=== PATIENT | female | born 2000 | race Caucasian/White ===

== ENCOUNTER 2020-03-03 13:32 | Outpatient (CLI) | payer OTHER, SELFPAY ==
[2020-03-03 22:50] LABS: SARS-CoV-2 RNA PCR Negative
== END 2020-03-03 13:33 | disposition home or self-care (01) ==
LOC: CHSLAB 13:39
DX: Z11.59 Encounter for screening for other viral diseases (principal)
CPT/HCPCS: 87635; C9803; U0003

== ENCOUNTER 2021-12-17 17:38 | Outpatient (CLI) | payer OTHER, SELFPAY ==
[2021-12-17 18:26] LABS: Thyroid Stimulating Hormone 1.62 uIU/mL (0.36-3.74)
== END 2021-12-17 17:39 | disposition home or self-care (01) ==
LOC: CHSLAB 17:40
PROVIDERS: PCP Family Medicine; Visit Provider Physician Assistant
DX: L65.9 Nonscarring hair loss, unspecified (principal)
CPT/HCPCS: 36415; 84439; 84443

== ENCOUNTER 2022-01-11 09:08 | Outpatient (CLI) | payer OTHER, SELFPAY ==
[2022-01-11 10:47] LABS: SARS-CoV-2 RNA PCR Positive (Negative)
== END 2022-01-11 09:09 | disposition home or self-care (01) ==
LOC: CHSLAB 09:13
PROVIDERS: PCP Nurse Practitioner; Visit Provider Nurse Practitioner
DX: U07.1 COVID-19 (principal); R09.89 Other specified symptoms and signs involving the circulatory and respiratory systems
CPT/HCPCS: C9803; U0003; U0005

== ENCOUNTER 2022-05-28 06:21 | Emergency (ER) | payer OTHER, SELFPAY ==
[2022-05-28 06:24] VITALS: BP 117/65; PULSE 72; RESP 16; TEMP 36.7; O2SAT 100
--- NOTE | 2022-05-28 06:37 | ED.EYEPROB ---
HPI - Eye Problem General Chief complaint: Eye Problems Stated complaint: Eye Irritation Source: patient Mode of arrival: ambulatory Limitations: no limitations History of Present Illness HPI Narrative: This is a 22-year-old female with some red had injected left eye with yellow discharge started earlier this morning patient does have cats at home there is some mild itching redness with no fever chills. No blurry vision. chief complaint: eye redness Onset (ago): hour(s) Onset description: gradual Duration: constant Location: left eye Eye Symptoms: redness and discharge Place: home Mechanism: none Severity: mild Related Data Home Medications Medication Instructions Recorded Confirmed fluoxetine 20 mg capsule 20 mg PO DIRECTED 05/28/22 05/28/22 Allergies Allergy/AdvReac Type Severity Reaction Status Date / Time midazolam Allergy Unknown Unknown Verified 05/28/22 06:30 Review of Systems Review of Systems: All systems reviewed & are unremarkable except as noted in HPI and below PMFSH Past Medical History Medical History Patient denies medical problems Exam Const: General: healthy appearing Nutritional Appearance: well nourished Orientation/consciousness: patient oriented x3 Limitations: no limitations HENMT: Head: normal to inspection Eyes: Conjunctivae: conjunctival abnormality ( red injected with a yellow discharge) left Pupils: Equal, round and reactive pupils present EOM: EOMs intact bilaterally Direct Ophthalmoscopy: no photophobia Neck: Neck: normal visual inspection Chest: Chest palpation & inspection: normal inspection of the chest Resp: Effort & Inspection: normal respiratory effort Cardio: Rate: regular rate Rhythm: regular rhythm GI: Auscultation: normal bowel sounds Urinary Catheter: Urinary Catheter: patent and draining Back/Spine/Pelvis: Back: no CVA tenderness Skin: General skin exam: normal color Rashes: no rashes Wounds: no wounds Neuro: General: patient oriented x3 and moves all extremities Extrem: General: normal to inspection Psych: Mental Status: mental status grossly normal Affect: normal affect Course Course Emergency Course: patient received antibiotic eye drop instilled to the left eye Critical Care Time Critical Care Time Critical Care Time: No Discharge Plan Discharge Clinical Impression: Bacterial conjunctivitis Patient Disposition: Home, Self-Care Condition: Stable Instructions: Antibiotic Form, Conjunctivitis (ED) Additional Instructions: take medicine as prescribed and follow-up with primary care physician if symptoms persist or worsen. Prescriptions: New neomycin-polymyxin B-dexameth [Maxitrol] 3.5mg/mL-10,000 unit/mL-0.1 % drops,suspension 1 drp LEFT EYE Q6H 7 Days Qty: 5 0RF No Action fluoxetine 20 mg Capsule 20 mg PO DIRECTED Follow-up/Referrals: Monique,Olga Lidia Molina, LELA [Primary Care Provider] - Time of Disposition: 06:43
[2022-05-28] MEDS: NEOMYCIN/POLYMYXIN/DEXAMETH OP SUSP 5 ML BTL 1 DROP LEFT EYE (06:45)
== END 2022-05-28 06:57 | disposition home or self-care (01) ==
PROVIDERS: Emergency Provider Emergency Medicine; PCP Nurse Practitioner
DX: H10.9 Unspecified conjunctivitis (principal)
CPT/HCPCS: 99283; A9270

== ENCOUNTER 2023-07-29 14:33 | Emergency (ER) | payer OTHER, MEDICAID, SELFPAY ==
--- NOTE | 2023-07-29 14:36 | ED.UPPEXIN ---
HPI - Extremity Injury (Upper) General Chief Complaint: Upper Respiratory Infection Stated Complaint: sore throat Time Seen by Provider: 07/29/23 14:34 Source: patient Mode of arrival: ambulatory Limitations: no limitations History of Present Illness HPI narrative: patient is a 23-year-old female with sore throat left greater than right side of the throat. She has no other complaints at this time. Pain is sharp and 4/10. It does not radiate. It started 4 days ago. It has been constant. It is getting worse. Associated symptoms: denies other symptoms Related Data Allergies Allergy/AdvReac Type Severity Reaction Status Date / Time midazolam Allergy Unknown Unknown Verified 07/29/23 14:48 Review of Systems Review of Systems: All systems reviewed & are unremarkable except as noted in HPI and below Constitutional: Constitutional: Reports no additional constitutional complaints Eyes: Eyes: Reports no additional eye complaints ENT: Reports system reviewed and no additional complaints, except as documented Cardiovascular: Cardiovascular: Reports no additional cardiovascular complaints Respiratory: Respiratory: Reports no additional respiratory complaints Gastrointestinal: Gastrointestinal: Reports no additional gastrointestinal complaints Genitourinary: Genitourinary: Reports no additional female genitourinary complaints Musculoskeletal: Musculoskeletal: Reports no additional musculoskeletal complaints Integumentary/Breasts: Skin/Breast: Reports system reviewed and no additional complaints, except as docu Neurologic: Reports system reviewed and no additional complaints, except as documented Psychiatric: Psychiatric: Reports no additional psychiatric complaints Endocrine: Endocrine: Reports no additional endocrine complaints Hematologic/Lymphatic: Hematologic/Lymphatic: Reports no additional hematologic/lymphatic complaints Allergic/Immunologic: Allergic/Immunologic: Reports no additional allergic/immunologic complaints PMFSH Past Medical History Medical History Patient denies medical problems Exam Const: General: healthy appearing Nutritional Appearance: well nourished Orientation/consciousness: patient oriented x3 HENMT: Head: normal to inspection Ears: external ears normal Face/Nose/Sinus: Normal external nose present Throat: posterior oropharynx abnormal Other: white pus pocket on the left posterior tonsil in the oropharynx and her pain is on the left side greater than the right Eyes: Conjunctivae: conjunctivae normal Pupils: Equal, round and reactive pupils present EOM: EOMs intact bilaterally Neck: Neck: normal visual inspection Chest: Chest palpation & inspection: normal inspection of the chest Resp: Effort & Inspection: normal respiratory effort and not labored Auscultation: clear to auscultation bilaterally and no crackles Cardio: Rate: regular rate Rhythm: regular rhythm Heart sounds: no murmurs GI: Inspection: non-distended GI Palp: Yes Soft to palpation, No Tenderness to palpation present (GI) and No Guarding due to palpation present (GI) Auscultation: normal bowel sounds : General: Yes bladder normal to palpation Back/Spine/Pelvis: Back: no CVA tenderness Skin: General skin exam: normal color Rashes: no rashes Wounds: no wounds Neuro: General: patient oriented x3 Cranial nerves: Yes Nystagmus not present Speech: normal speech Extrem: General: normal to inspection Psych: Mental Status: mental status grossly normal Affect: normal affect Attitude: cooperative Course Vital Signs Vital signs: Vital Signs Temperature 36.2 C L 07/29/23 14:38 Pulse Rate 82 07/29/23 14:38 Respiratory Rate 19 07/29/23 14:38 Blood Pressure 118/73 07/29/23 14:38 Pulse Oximetry 100 07/29/23 14:38 Oxygen Delivery Room Air 07/29/23 14:38 Temperature 36.2 C L 07/29/23 14:38 Pulse Rate 82 07/29/23
[2023-07-29 14:38] VITALS: BP 118/73; PULSE 82; RESP 19; TEMP 36.2; O2SAT 100
[2023-07-29 15:15] LABS: Strep Group A RT-PCR NOT DETECTED (Negative)
[2023-07-29 15:16] LABS: SARS-CoV-2 Ag Negative (Negative)
[2023-07-29 15:30] VITALS: BP 120/72; PULSE 86; RESP 19; TEMP 37; O2SAT 99
[2023-07-29] MEDS: AMOXICILLIN 500 MG CAPSULE PO (15:31)
== END 2023-07-29 15:35 | disposition home or self-care (01) ==
PROVIDERS: Emergency Provider Emergency Medicine; PCP Family Medicine
DX: J02.8 Acute pharyngitis due to other specified organisms (principal); Z20.822 Contact with and (suspected) exposure to COVID-19
CPT/HCPCS: 87426; 87651; 99283; A9270; C9803

== ENCOUNTER 2024-05-17 16:40 | Emergency (ER) | payer SELFPAY ==
[2024-05-17] VITALS (13 sets, daily range): BP systolic 94–139; BP diastolic 54–79; PULSE 69–127; RESP 11–20; TEMP 36.8; O2SAT 97–100
--- NOTE | 2024-05-17 16:45 | ECG_ITS ---
Test Date: 2024-05-17 17:05:53 Measurements Intervals Mobile Rate: 148 P: 73 MS: 126 QRS: 84 QRSD: 109 T: 55 QT: 327 QTc: 515 Interpretive Statements SINUS TACHYCARDIA, INCOMPLETE RIGHT BUNDLE BRANCH BLOCK [90+ ms QRS DURATION, TERMINAL R IN V1/V2, 40+ ms S IN I/aVL/V4/V5/V6] NONSPECIFIC T-WAVE ABNORMALITY ABNORMAL ECG No previous ECG available for comparison Electronically Signed On 05-18-2024 13:14:49 CDT by Enrike Blankenship M.D.
[2024-05-17] MEDS: ALPRAZolam (*CRX) 0.5 MG TABLET PO (17:23)
--- NOTE | 2024-05-17 17:45 | PC.NURSE ---
patient ambulatory to bathroom with steady gait. no needs at this time.
[2024-05-17 18:14] LABS: Basophils Absolute Auto 0.03 K/mm3 (0.00-0.10); Basophils Percent Auto 0.5 % (0.0-1.0); Eosinophils Absolute Auto 0.03 K/mm3 (0.02-0.50); Eosinophils Percent Auto 0.5 % (1.0-6.0); Hematocrit 34.3 % (35.0-49.0); Hemoglobin 11.8 g/dL (12.0-15.0); Immature Granulocyte Absolute 0.01 K/mm3 (0.00-0.00); Immature Granulocyte Percent A 0.2 % (0.0-0.0); Lymphocytes Absolute Auto 1.84 K/mm3 (1.10-4.50); Lymphocytes Percent Auto 29.3 % (18.0-42.0); Mean Corpuscular HGB Conc 34.4 g/dL (32-36); Mean Corpuscular Hemoglobin 29.2 pg (27.0-31.0); Mean Corpuscular Volume 84.9 fL (78.0-102.0); Mean Platelet Volume 10.2 fl (9.2-11.8); Monocytes Absolute Auto 0.45 K/mm3 (0.10-0.90); Monocytes Percent Auto 7.2 % (2.0-11.0); Neutrophils Absolute Auto 3.93 K/mm3 (1.70-7.20); Neutrophils Percent Auto 62.3 % (50.0-70.0); Platelet Count Result 268 K/mm3 (150-420); Red Blood Count 4.04 M/mm3 (4.20-5.40); Red Cell Distribution Width 13.8 % (11.6-14.4); White Blood Count 6.3 K/mm3 (4.8-10.8)
--- NOTE | 2024-05-17 18:34 | ED_ITS ---
HPI - Anxiety General Chief Complaint: Anxiety Stated Complaint: anxiety Time Seen by Provider: 05/17/24 16:41 Source: patient and family Mode of arrival: ambulatory Limitations: no limitations History of Present Illness HPI narrative: this is a 24-year-old female that presents with palpitations and history of anx iety otherwise there is no chest pain or shortness of breath no fever chills, heart rate initial is 127 with no fever chills no nausea vomiting no dysuria and no abdominal pain or flank pain. MD complaint: anxiety and heart racing Onset (ago): hour(s) Symptoms: palpitations Severity: moderate Quality: constant Place: home History of similar episodes: Yes Related Data Allergies Allergy/AdvReac Type Severity Reaction Status Date / Time midazolam Allergy Unknown SEE COMMENT Verified 05/17/24 16:52 Review of Systems Review of Systems: All systems reviewed & are unremarkable except as noted in HPI and below PMFSH Past Medical History Medical History Patient denies medical problems Exam Const: General: healthy appearing, no acute distress and alert Nutritional Appearance: well nourished Orientation/consciousness: patient oriented x3 Limitations: no limitations Eyes: Conjunctivae: conjunctivae normal Pupils: Equal, round and reactive pupils present EOM: EOMs intact bilaterally Neck: Neck: normal visual inspection and no lymphadenopathy Chest: Chest palpation & inspection: normal inspection of the chest Resp: Effort & Inspection: normal respiratory effort Auscultation: clear to auscultation bilaterally Cardio: Rate: tachycardic Rhythm: regular rhythm GI: GI Palp: Yes Soft to palpation Auscultation: normal bowel sounds Neuro: General: patient oriented x3, moves all extremities, no meningeal signs and no focal motor deficits Psych: Affect: Anxious affect present Course Course Emergency Course: Patient with a heart rate of 127, did receive alprazolam p.o. and currently her symptoms have markedly improved with heart rate in the 80s patient feels much better blood work obtained reviewed and within normal limits, EKG initially showed heart rate of 140s current heart rate in the 80s with normal sinus rhythm. Vital Signs Vital signs: Vital Signs Temperature 36.8 C 05/17/24 16:41 Pulse Rate 127 H 05/17/24 16:41 Respiratory Rate 20 05/17/24 16:41 Blood Pressure 139/79 05/17/24 16:41 Pulse Oximetry 99 05/17/24 16:41 Oxygen Delivery Room Air 05/17/24 16:41 Temperature 36.8 C 05/17/24 16:41 Pulse Rate 127 H 05/17/24 16:41 Respiratory Rate 20 05/17/24 16:41 Blood Pressure 139/79 05/17/24 16:41 Pulse Oximetry 99 05/17/24 16:41 Oxygen Delivery Room Air 05/17/24 16:41 MDM - Anxiety Lab Data 05/17/24 17:55 05/17/24 17:55 Labs: Lab Results 05/17/24 Range/Units 17:55 WBC 6.3 (4.8-10.8) K/mm3 RBC 4.04 L (4.20-5.40) M/mm3 Hgb 11.8 L (12.0-15.0) g/dL Hct 34.3 L (35.0-49.0) % MCV 84.9 (78.0-102.0) fL MCH 29.2 (27.0-31.0) pg MCHC 34.4 (32-36) g/dL RDW 13.8 (11.6-14.4) % Plt Count 268 (150-420) K/mm3 MPV 10.2 (9.2-11.8) fl Immature Gran % (Auto) 0.2 H (0.0-0.0) % Neut % (Auto) 62.3 (50.0-70.0) % Lymph % (Auto) 29.3 (18.0-42.0) % [place] % (Auto) 7.2 (2.0-11.0) % Eos % (Auto) 0.5 L (1.0-6.0) % Baso % (Auto) 0.5 (0.0-1.0) % Lymph # (Auto) 1.84 (1.10-4.50) K/mm3 [place] # (Auto) 0.45 (0.10-0.90) K/mm3 Eos # (Auto) 0.03 (0.02-0.50) K/mm3 Baso # (Auto) 0.03 (0.00-0.10) K/mm3 Abs Immat Gran (auto) 0.01 H (0.00-0.00) K/mm3 Absolute Neuts (auto) 3.93 (1.70-7.20) K/mm3 Absolute Nucleated RBC 0.00 (0.00-0.00) K/mm3 Nucleated RBC % 0.0 (0-0.0) % D-Dimer Pending Sodium Pending Potassium Pending Chloride Pending Carbon Dioxide Pending Anion Gap Pending BUN Pending Creatinine Pending Estim Creat Clear Calc Pending Estimated GFR Pending Glucose Pending Calculated Osmolality Pending Calcium Pending Total Bilirubin Pending AST Pending ALT Pending Alkaline Phosphatase Pending Total Protein Pending Albumin Pending TSH Pending Critical Care Time Critical Care Time Critical Care Time: No Discharge Plan Discharge Clinical Impression: Acute anxiety, Panic disorder, Heart palpitations Patient Disposition: Home, Self-Care Condition: Stable Instructions: Antibiotic Form, Panic Disorder (ED), Anxiety (ED), Heart Palpitations (ED) Additional Instructions: advised to take medicine as prescribed and follow up with primary within 1 week further evaluation and treatment. Prescriptions: No Action amoxicillin 500 mg capsule 500 mg PO BID 10 Days Qty: 20 0RF Follow-up/Referrals: Kristopher Rodriguez M.D. [Primary Care Provider] -
[2024-05-17 18:38] LABS: Alanine Aminotransferase 28 U/L (14-59); Albumin Level 3.9 g/dL (3.4-5.0); Alkaline Phosphatase 46 U/L (46-116); Anion Gap 11 mmol/L (4-12); Aspartate Amino Transferase 32 U/L (15-37); Bilirubin,Total 0.5 mg/dL (0.00-1.00); Blood Urea Nitrogen 9 mg/dL (7-18); Carbon Dioxide 24 mmol/L (21-32); Chloride 106 mmol/L (98-108); Estimated CRCL calculation 89 ml/min; Estimated Glomerular Filt Rate > 60; Glucose 118 mg/dL (70-99); Osmolality Calculated 291 mOsm/kg (285-295); Potassium 3.7 mmol/L (3.5-5.1); Sodium 141 mmol/L (136-145); Thyroid Stimulating Hormone 1.98 uIU/mL (0.36-3.74)
[2024-05-17 18:44] LABS: D Dimer 0.19 mg/L (0.19-0.50)
== END 2024-05-17 19:11 | disposition home or self-care (01) ==
PROVIDERS: Emergency Provider Emergency Medicine; PCP Family Medicine
DX: F41.9 Anxiety disorder, unspecified (principal); F41.0 Panic disorder [episodic paroxysmal anxiety]; R00.2 Palpitations
CPT/HCPCS: 36415; 80053; 84443; 85025; 85380; 93005; 99283; A9270

== ENCOUNTER 2024-06-03 13:19 | Emergency (ER) | payer OTHER, MEDICAID, SELFPAY ==
[2024-06-03 13:24] VITALS: BP 120/85; PULSE 113; RESP 18; TEMP 36.4; O2SAT 99
--- NOTE | 2024-06-03 13:45 | ED.ANXIETY ---
HPI - Anxiety General Chief Complaint: Anxiety Stated Complaint: ANXIETY Time Seen by Provider: 06/03/24 13:30 Source: patient Mode of arrival: ambulatory Limitations: no limitations History of Present Illness HPI narrative: Patient is a 24-year-old female with a significant past medical history that presents today for anxiety. Patient states she has anxiety and panic attacks for some time now. She states that she used to smoke weed for about 10 years but she quit now and she thinks that was tubing to her anxiety a lot. However she still does get anxiety she was seen here about a week ago and they gave her Xanax for home. She says this headaches does help which just makes her tired. complaint: anxiety Onset (ago): week(s) Severity: mild Quality: intermittent Place: home History of similar episodes: Yes Provoking factors: none known Relieving factors: medication Exacerbating factors: thinking about event Associated symptoms: denies other symptoms Related Data Allergies Allergy/AdvReac Type Severity Reaction Status Date / Time midazolam Allergy Unknown SEE COMMENT Verified 05/17/24 16:52 Review of Systems Review of Systems: All systems reviewed & are unremarkable except as noted in HPI and below Constitutional: Constitutional: Reports as per HPI Eyes: Eyes: Reports no additional eye complaints ENT: Reports system reviewed and no additional complaints, except as documented Cardiovascular: Cardiovascular: Reports no additional cardiovascular complaints Respiratory: Respiratory: Reports no additional respiratory complaints Gastrointestinal: Gastrointestinal: Reports no additional gastrointestinal complaints Musculoskeletal: Musculoskeletal: Reports no additional musculoskeletal complaints Integumentary/Breasts: Skin/Breast: Reports system reviewed and no additional complaints, except as docu Neurologic: Reports system reviewed and no additional complaints, except as documented Psychiatric: Psychiatric: Reports as per HPI and Reports anxiety Endocrine: Endocrine: Reports no additional endocrine complaints Hematologic/Lymphatic: Hematologic/Lymphatic: Reports no additional hematologic/lymphatic complaints Allergic/Immunologic: Allergic/Immunologic: Reports no additional allergic/immunologic complaints PMFSH Past Medical History Medical History Patient denies medical problems Social History Social History Substance use type: marijuana Exam Const: General: healthy appearing, no acute distress and alert HENMT: Head: normal to inspection Ears: external ears normal Face/Nose/Sinus: Normal external nose present Eyes: Conjunctivae: conjunctivae normal Pupils: Equal, round and reactive pupils present EOM: EOMs intact bilaterally Neck: Neck: normal visual inspection Chest: Chest palpation & inspection: normal inspection of the chest Resp: Effort & Inspection: normal respiratory effort Cardio: Rate: regular rate Rhythm: regular rhythm GI: GI Palp: Yes Soft to palpation Back/Spine/Pelvis: Back: no CVA tenderness Skin: General skin exam: normal color Rashes: no rashes Wounds: no wounds Neuro: General: patient oriented x3, moves all extremities and no meningeal signs Extrem: General: normal to inspection Psych: Mental Status: mental status grossly normal Affect: normal affect Attitude: cooperative Course Vital Signs Vital signs: Vital Signs Temperature 97.6 F 06/03/24 13:24 Pulse Rate 113 H 06/03/24 13:24 Respiratory Rate 18 06/03/24 13:24 Blood Pressure 120/85 06/03/24 13:24 Pulse Oximetry 99 06/03/24 13:24 Oxygen Delivery Room Air 06/03/24 13:24 Temperature 97.6 F 06/03/24 13:24 Pulse Rate 113 H 06/03/24 13:24 Respiratory Rate 18 06/03/24 13:24 Blood Pressure 120/85 06/03/24 13:24 Pulse Oximetry 99 06/03/24 13:24 Oxygen Delivery Room Air 06/03/24 13:24 MDM - Anxiety MDM Narrative Medical decision making narrative: Patient still has Xanax for that she was given and prescribed the last time she was here. She stated that she just likes to be at the hospital a pacer for comfort when she has anxiety. Discussed with her starting an SSRI medication such as Paxil for long-term anxiety. That way she would not need the Xanax. she has agreed to this and would like to try this out. Differential Diagnosis Differential diagnosis: Likely panic disorder, acute anxiety and other Medical Records Attestation: I reviewed the patient's medical records. Lab Data Attestation: I reviewed the patient's lab results. Discharge Plan Discharge Clinical Impression: Panic disorder, Anxiety Patient Disposition: Home, Self-Care Condition: Stable Instructions: Anxiety (ED) Prescriptions: New paroxetine HCl [Paxil] 20 mg tablet 20 mg PO QAM Qty: 30 0RF No Action alprazolam [Xanax] 0.5 mg tablet 0.5 mg PO BID PRN (Reason: anxiety) Qty: 20 0RF Follow-up/Referrals: Kristopher Rodriguez M.D. [Primary Care Provider] - Time of Disposition: 13:59
--- NOTE | 2024-06-03 14:05 | PC.NURSE ---
MOTHER HAS ARRIVED AT BEDSIDE.
== END 2024-06-03 14:10 | disposition home or self-care (01) ==
PROVIDERS: Emergency Provider Family Medicine; PCP Family Medicine
DX: F41.0 Panic disorder [episodic paroxysmal anxiety] (principal); F41.9 Anxiety disorder, unspecified
CPT/HCPCS: 99283

== ENCOUNTER 2024-07-21 11:34 | Emergency (ER) | payer MEDICAID, SELFPAY ==
[2024-07-21] VITALS (8 sets, daily range): BP systolic 103–129; BP diastolic 74–96; PULSE 75–120; RESP 18; TEMP 36.8; O2SAT 97–100
--- NOTE | ~2024-07-21 | XR_ITS ---
EXAMINATION: XR chest 2V DATE: 07/21/2024 12:48 INDICATION: Chest pain. TECHNIQUE: Frontal and lateral views of the chest were obtained. COMPARISON: CT abdomen and pelvis 08/02/2018 FINDINGS: There is no pneumonia, pleural effusion, or pneumothorax. The heart size is normal. IMPRESSION: 1. No acute cardiopulmonary disease. Reviewed, dictated and finalized at location A. N WORKER
--- NOTE | 2024-07-21 11:43 | ED.CHESTPAIN ---
HPI - Chest Pain General Chief Complaint: Arrhythmia/Palpitations Stated Complaint: intermittent chest wall pain Time Seen by Provider: 07/21/24 11:43 Source: patient Mode of arrival: ambulatory Limitations: no limitations History of Present Illness HPI narrative: patient is a 24-year-old female with recurrent small episodes of left chest pain on the left lateral chest from time to time. This is a sharp pain and lasts only a few seconds and resolves. She has had multiple cardiac workups to include EKGs and monitors. She came here because of 2 episodes this morning. no other symptoms. Patient denies drug use but occasional marijuana use otherwise. patient has anxiety. MD complaint: chest pain Pertinent past history: other ( None) Onset (ago): day(s) (1) Timing of current episode: episodic Prior episodes: Yes Onset: during rest, during exertion and after eating Pain location: left chest and lateral Pain radiation: none Severity: mild Pain scale (0-10): 2 Quality: sharp Relieving factors: nothing Exacerbating factors: nothing Context: other ( patient has occasional left lateral chest pain which is sharp and short living episodes) Treatment prior to arrival: none Risk Factors Coronary artery disease risk factors: none Thoracic aortic dissection risk factors: none Related Data On Oral Contraceptives: No Home Medications ?Medication ?Instructions ?Recorded ?Confirmed ?Last Taken ?Type fluoxetine 20 mg capsule 20 mg PO DAILY 07/21/24 07/20/24 History Allergies Allergy/AdvReac Type Severity Reaction Status Date / Time midazolam Allergy Unknown SEE COMMENT Verified 07/21/24 12:43 Review of Systems Review of Systems: All systems reviewed & are unremarkable except as noted in HPI and below Constitutional: Constitutional: Reports no additional constitutional complaints Eyes: Eyes: Reports no additional eye complaints ENT: Reports system reviewed and no additional complaints, except as documented Cardiovascular: Cardiovascular: Reports no additional cardiovascular complaints Respiratory: Respiratory: Reports no additional respiratory complaints Gastrointestinal: Gastrointestinal: Reports no additional gastrointestinal complaints Genitourinary: Genitourinary: Reports no additional female genitourinary complaints Musculoskeletal: Musculoskeletal: Reports no additional musculoskeletal complaints Integumentary/Breasts: Skin/Breast: Reports system reviewed and no additional complaints, except as docu Neurologic: Reports system reviewed and no additional complaints, except as documented Psychiatric: Psychiatric: Reports no additional psychiatric complaints Endocrine: Endocrine: Reports no additional endocrine complaints Hematologic/Lymphatic: Hematologic/Lymphatic: Reports no additional hematologic/lymphatic complaints Allergic/Immunologic: Allergic/Immunologic: Reports no additional allergic/immunologic complaints PMFSH Past Medical History Medical History Patient denies medical problems Social History Social History Substance use type: marijuana Exam Const: General: healthy appearing Nutritional Appearance: well nourished Orientation/consciousness: patient oriented x3 Limitations: no limitations HENMT: Head: normal to inspection Ears: external ears normal Face/Nose/Sinus: Normal external nose present Face and sinus: normal facial exam Eyes: Conjunctivae: conjunctivae normal Pupils: Equal, round and reactive pupils present EOM: EOMs intact bilaterally Neck: Neck: normal visual inspection Chest: Chest palpation & inspection: normal inspection of the chest Resp: Effort & Inspection: normal respiratory effort and not labored Auscultation: clear to auscultation bilaterally and no crackles Cardio: Rate: regular rate Rhythm: regular rhythm Heart sounds: no murmurs GI: Inspection: non-distended GI Palp: Yes Soft to palpation and No Tenderness to palpation present (GI) Auscultation: normal bowel sounds : General: Yes bladder normal to palpation Back/Spine/Pelvis: Back: no CVA tenderness Skin: General skin exam: normal color Rashes: no rashes Wounds: no wounds Neuro: General: patient oriented x3 Cranial nerves: Yes Nystagmus not present Speech: normal speech Gait exam (Neuro): Normal gait present Extrem: General: normal to inspection Psych: Mental Status: mental status grossly normal Affect: normal affect and Anxious affect present Attitude: cooperative Course Vital Signs Vital signs: Vital Signs Temperature 36.8 C 07/21/24 11:49 Pulse Rate 120 H 07/21/24 11:49 Respiratory Rate 18 07/21/24 11:49 Blood Pressure 129/96 H 07/21/24 11:49 Pulse Oximetry 99 07/21/24 11:49 Oxygen Delivery Room Air 07/21/24 11:49 Temperature 36.8 C 07/21/24 11:49 Pulse Rate 78 07/21/24 13:05 Respiratory Rate 18 07/21/24 11:49 Blood Pressure 118/75 07/21/24 13:05 Pulse Oximetry 97 07/21/24 13:16 Oxygen Delivery Room Air 07/21/24 11:49 MDM - Chest Pain MDM Narrative Medical decision making narrative: Patient is a 24-year-old female with recurrent left-sided lateral chest pain. We will do a workup at this time for chest pain and likely give reassurance at the end that this appears more musculoskeletal or nerve related type pain. patient given reassurance about her chest pain and likely musculoskeletal versus a nerve. We will do a Medrol Dosepak trial at this time. Lab Data Attestation: I reviewed the patient's lab results. 07/21/24 12:36 07/21/24 12:36 Labs: Lab Results 07/21/24 Range/Units 12:36 WBC 5.1 (4.8-10.8) K/mm3 RBC 4.58 (4.20-5.40) M/mm3 Hgb 13.2 (12.0-15.0) g/dL Hct 38.3 (35.0-49.0) % MCV 83.6 (78.0-102.0) fL MCH 28.8 (27.0-31.0) pg MCHC 34.5 (32-36) g/dL RDW 13.0 (11.6-14.4) % Plt Count 269 (150-420) K/mm3 MPV 9.2 (9.2-11.8) fl Immature Gran % (Auto) 0.0 (0.0-0.0) % Neut % (Auto) 48.7 L (50.0-70.0) % Lymph % (Auto) 42.2 H (18.0-42.0) % [place] % (Auto) 8.1 (2.0-11.0) % Eos % (Auto) 0.4 L (1.0-6.0) % Baso % (Auto) 0.6 (0.0-1.0) % Lymph # (Auto) 2.14 (1.10-4.50) K/mm3 [place] # (Auto) 0.41 (0.10-0.90) K/mm3 Eos # (Auto) 0.02 (0.02-0.50) K/mm3 Baso # (Auto) 0.03 (0.00-0.10) K/mm3 Abs Immat Gran (auto) 0.00 (0.00-0.00) K/mm3 Absolute Neuts (auto) 2.47 (1.70-7.20) K/mm3 Absolute Nucleated RBC 0.00 (0.00-0.00) K/mm3 Nucleated RBC % 0.0 (0-0.0) % Sodium 138 (136-145) mmol/L Potassium 3.9 (3.5-5.1) mmol/L Chloride 102 (98-108) mmol/L Carbon Dioxide 28 (21-32) mmol/L Anion Gap 8 (4-12) mmol/L BUN 14 (7-18) mg/dL Creatinine 0.75 (0.55-1.02) mg/dL Estim Creat Clear Calc 83 ml/min Estimated GFR > 60 (59 - ) Glucose 96 (70-99) mg/dL Calculated Osmolality 286 (285-295) mOsm/kg Calcium 8.9 (8.5-10.1) mg/dL Total Bilirubin 0.4 (0.00-1.00) mg/dL AST 13 L (15-37) U/L ALT 22 (14-59) U/L Alkaline Phosphatase 50 (46-116) U/L Troponin I < 4.0 (0.00-60.4) ng/L Total Protein 7.2 (6.4-8.2) g/dL Albumin 4.1 (3.4-5.0) g/dL Lipase 21 (16-77) U/L Urine Color Yellow (Yellow) Urine Appearance Clear (Clear) Urine pH 6.0 (5.0-8.0) Ur Specific [place] 1.025 H (1.010-1.020) Urine Protein Negative (Negative) Urine Glucose (UA) Negative (Negative) Urine Ketones Negative (Negative) Ur Blood (Man) Negative (Negative) Urine Nitrate Negative (Negative) Urine Bilirubin Negative (Negative) Urine Urobilinogen 0.2 (0.2-1.0) mg/dL Leukocyte Esterase Rfl Negative (Negative) NATHANAEL/UL Urine Test Negative Urine Opiates Screen Negative (Negative) Urine Methadone Screen Negative (Negative) Ur Barbiturates Screen Negative (Negative) Ur Phencyclidine Scrn Negative (Negative) Ur Amphetamine Screen Negative (Negative) U Benzodiazepines Scrn Negative (Negative) Urine Cocaine Screen Negative (Negative) U Cannabinoids Screen Positive A (Negative) Imaging Data Attestation: I personally reviewed and interpreted this imaging study as follows: Radiologist's impression: Chest x-rays negative for acute process ECG Data EKG #1: Attestation: I personally reviewed and interpreted this ECG as follows: ECG completion date: 07/21/24 ECG completion time: 12:38 EKG Interpretation: tachycardia, sinus rhythm, no ectopy, no ST changes, normal QRS, normal QT, NL axis and no acute changes Discharge Plan Discharge Clinical Impression: Atypical chest pain Patient Disposition: Home, Self-Care Condition: Stable Instructions: Chest Wall Pain (ED) Patient Language: Citizen Of [place] Prescriptions: New methylprednisolone [Medrol (Osmany)] 4 mg tablets,dose pack See Rx Instructions .ROUTE .COMPLEX Qty: 21 0RF Rx Instructions: orally per package directions No Action alprazolam [Xanax] 0.5 mg tablet 0.5 mg PO BID PRN (Reason: anxiety) Qty: 20 0RF fluoxetine 20 mg capsule 20 mg PO DAILY Follow-up/Referrals: Kristopher Rodriguez M.D. [Primary Care Provider] - Time of Disposition: 13:22
--- NOTE | 2024-07-21 11:51 | ECG_ITS ---
Test Date: 2024-07-21 12:02:35 Measurements Intervals [place] Rate: 115 P: 74 [place]: 96 QRS: 84 QRSD: 102 T: 64 QT: 322 QTc: 447 Interpretive Statements SINUS TACHYCARDIA WITH SHORT [place] INTERVAL INCOMPLETE RIGHT BUNDLE BRANCH BLOCK [90+ ms QRS DURATION, TERMINAL R IN V1/V2, 40+ ms S IN I/aVL/V4/V5/V6] ABNORMAL RHYTHM ECG Compared to ECG 05/17/2024 17:05:53 Short [place] interval now present T-wave abnormality no longer present Electronically Signed On 07-21-2024 18:09:01 AMMONIA TECHNICIAN by Rojas Ocasio M.D.
[2024-07-21 12:43] LABS: Basophils Absolute Auto 0.03 K/mm3 (0.00-0.10); Basophils Percent Auto 0.6 % (0.0-1.0); Eosinophils Absolute Auto 0.02 K/mm3 (0.02-0.50); Eosinophils Percent Auto 0.4 % (1.0-6.0); Hematocrit 38.3 % (35.0-49.0); Hemoglobin 13.2 g/dL (12.0-15.0); Lymphocytes Absolute Auto 2.14 K/mm3 (1.10-4.50); Lymphocytes Percent Auto 42.2 % (18.0-42.0); Mean Corpuscular HGB Conc 34.5 g/dL (32-36); Mean Corpuscular Hemoglobin 28.8 pg (27.0-31.0); Mean Corpuscular Volume 83.6 fL (78.0-102.0); Mean Platelet Volume 9.2 fl (9.2-11.8); Monocytes Absolute Auto 0.41 K/mm3 (0.10-0.90); Monocytes Percent Auto 8.1 % (2.0-11.0); Neutrophils Absolute Auto 2.47 K/mm3 (1.70-7.20); Neutrophils Percent Auto 48.7 % (50.0-70.0); Platelet Count Result 269 K/mm3 (150-420); Red Blood Count 4.58 M/mm3 (4.20-5.40); White Blood Count 5.1 K/mm3 (4.8-10.8)
[2024-07-21 12:44] LABS: Add Urine Microscopic? NO; Appearance Urine Clear (Clear); Bilirubin Urine Negative (Negative); Blood Urine Negative (Negative); Color Urine Yellow (Yellow); Glucose Urine UA Negative (Negative); Ketones Urine Negative (Negative); Leukocyte Esterase Ur Negative LEU/UL (Negative); Nitrate Urine Negative (Negative); Protein Urine Negative (Negative); Specific Grav Ur 1.025 (1.010-1.020); Urobilinogen Urine 0.2 mg/dL (0.2-1.0)
[2024-07-21 12:54] LABS: Pregnancy On Board Control Positive; Urine Pregnancy Test Negative
[2024-07-21 12:56] LABS: Amphetamine Screen Urine Negative (Negative); Barbiturate Screen Urine Negative (Negative); Benzodiazepines Screen Urine Negative (Negative); Cannabinoid Screen Urine Positive (Negative); Cocaine Screen Urine Negative (Negative); Methadone Screen Urine Negative (Negative); Opiate Screen Urine Negative (Negative); Phencyclidine Screen Urine Negative (Negative)
[2024-07-21 13:05] LABS: Alanine Aminotransferase 22 U/L (14-59); Albumin Level 4.1 g/dL (3.4-5.0); Alkaline Phosphatase 50 U/L (46-116); Anion Gap 8 mmol/L (4-12); Aspartate Amino Transferase 13 U/L (15-37); Bilirubin,Total 0.4 mg/dL (0.00-1.00); Blood Urea Nitrogen 14 mg/dL (7-18); Calcium 8.9 mg/dL (8.5-10.1); Carbon Dioxide 28 mmol/L (21-32); Chloride 102 mmol/L (98-108); Estimated CRCL calculation 83 ml/min; Estimated Glomerular Filt Rate > 60; Glucose 96 mg/dL (70-99); Osmolality Calculated 286 mOsm/kg (285-295); Potassium 3.9 mmol/L (3.5-5.1); Sodium 138 mmol/L (136-145); Total Protein 7.2 g/dL (6.4-8.2)
[2024-07-21 13:06] LABS: Lipase 21 U/L (16-77); Troponin I < 4.0 ng/L (0.00-60.4)
== END 2024-07-21 13:25 | disposition home or self-care (01) ==
PROVIDERS: Emergency Provider Emergency Medicine; PCP Family Medicine
DX: R07.89 Other chest pain (principal); F12.90 Cannabis use, unspecified, uncomplicated
CPT/HCPCS: 36415; 71046; 80053; 80307; 81003; 81025; 83690; 84484; 85025; 93005; 99284

== ENCOUNTER 2025-02-25 16:14 | Emergency (ER) | payer OTHER, SELFPAY ==
[2025-02-25 16:15] VITALS: BP 116/72; PULSE 67; RESP 18; TEMP 37; O2SAT 98
--- NOTE | 2025-02-25 16:20 | ED_ITS ---
HPI - Dental/Oral General Chief complaint: Dental/Oral Stated complaint: rt. side bottom mouth pain Time Seen by Provider: 02/25/25 16:19 Source: patient Mode of arrival: ambulatory Limitations: no limitations History of Present Illness HPI Narrative: 4-year-old female with a history of anxiety / depression, dental caries with multiple fillings of the molars, erupting wisdom teeth presents to the ED with a 3 day history of - right lower dental pain. Pain is worse while drinking hot liquids /cold liquids no fever or swelling. No jaw swelling. patient saw a dentist 1 month ago. Complaint: tooth pain Location: Tooth # ( Thirty-one, 32) Onset (ago): day(s) ( 3 days) Duration: constant Severity: severe Relieving factors: NSAIDs Exacerbating factors: cold and heat Context: history of dental caries Treatment prior to arrival: oral analgesic Related Data Home Medications ?Medication ?Instructions ?Recorded ?Confirmed ?Last Taken ?Type fluoxetine 20 mg capsule 20 mg PO DAILY 07/21/24 07/20/24 History Allergies Allergy/AdvReac Type Severity Reaction Status Date / Time midazolam Allergy Unknown SEE COMMENT Verified 02/25/25 16:44 Review of Systems Review of Systems: All systems reviewed & are unremarkable except as noted in HPI and below PMFSH Past Medical History Medical History Anxiety and depression Patient denies medical problems Social History Social History Substance use type: marijuana Exam Narrative: vitals are stable Const: General: no acute distress Nutritional Appearance: well nourished Orientation/consciousness: patient oriented x3 Limitations: no limitations HENMT: Head: normal to inspection Ears: external ears normal Face/Nose/Sinus: Normal external nose present Face and sinus: normal facial exam Mouth: Yes Normal oral and palatal mucosa present Teeth and gingiva: abnormal tooth and associated gingiva ( Dental filling of all the molars on both sides. ) Other: Erupting wisdom teeth on right upper and right lower unsure whether the dental pain is from the erupting wisdom teeth or whether it is from dental caries/ Cavity Eyes: Conjunctivae: conjunctivae normal Pupils: Equal, round and reactive pupils present EOM: EOMs intact bilaterally Direct Ophthalmoscopy: no photophobia Neck: Neck: normal visual inspection, no lymphadenopathy and no meningeal signs Chest: Chest palpation & inspection: normal inspection of the chest Resp: Effort & Inspection: normal respiratory effort Auscultation: clear to auscultation bilaterally Cardio: Rate: regular rate Rhythm: regular rhythm GI: Auscultation: normal bowel sounds Other: no tenderness/rigidity / rebound. : General: Yes no CVA tenderness Back/Spine/Pelvis: Back: no CVA tenderness Skin: General skin exam: normal color Rashes: no rashes Wounds: no wounds Neuro: General: patient oriented x3, moves all extremities, no meningeal signs, no focal motor deficits and CN's II-XI intact bilaterally Cranial nerves: Yes Nystagmus not present Speech: normal speech Gait exam (Neuro): Normal gait present Extrem: General: normal to inspection and no clubbing, cyanosis or edema Psych: Mental Status: mental status grossly normal Affect: normal affect Attitude: cooperative Course Course Emergency Course: Dental pain erupting wisdom teeth Vital Signs Vital signs: Vital Signs Temperature 37.0 C 02/25/25 16:15 Pulse Rate 67 02/25/25 16:15 Respiratory Rate 18 02/25/25 16:15 Blood Pressure 116/72 02/25/25 16:15 Pulse Oximetry 98 02/25/25 16:15 Oxygen Delivery Room Air 02/25/25 16:15 Temperature 37.0 C 02/25/25 16:15 Pulse Rate 67 02/25/25 16:15 Respiratory Rate 18 02/25/25 16:15 Blood Pressure 116/72 02/25/25 16:15 Pulse Oximetry 98 02/25/25 16:15 Oxygen Delivery Room Air 02/25/25 16:15 MDM - Dental/Oral MDM Narrative Medical decision making narrative: dental pain erupting wisdom teeth Differential Diagnosis Differential diagnosis: Likely gingival abscess, dental caries, toothache and dental abscess Medical Records Attestation: I reviewed the patient's medical records. Lab Data Attestation: I reviewed the patient's lab results. Discharge Plan Discharge Clinical Impression: Pain, dental, Dental caries Patient Disposition: Home Condition: Stable Instructions: Antibiotic Form, Dental Abscess (ED), Toothache (ED) Patient Language: [place] Prescriptions: New amoxicillin 500 mg capsule 1,000 mg PO Q12H Qty: 28 0RF No Action alprazolam [Xanax] 0.5 mg tablet 0.5 mg PO BID PRN (Reason: anxiety) Qty: 20 0RF fluoxetine 20 mg capsule 20 mg PO DAILY methylprednisolone [Medrol ([place]sm[place])] 4 mg tablets,dose pack See Rx Instructions .ROUTE .COMPLEX Qty: 21 0RF Rx Instructions: orally per package directions Follow-up/Referrals: Kristopher Rodriguez M.D. [Primary Care Provider] - Stand Alone Forms: Work/School Release IP Time of Disposition: 16:45
--- OUTSIDE RECORDS SUMMARY | 2025-02-25 16:44 | XMS_ITS | Clinical Summary ---
Author Organization [facility] Address [address] [place] [id number] Care Team Providers Care Hand Edge Bander Name Role Phone Kristopher Rodriguez MD Primary Care Provider [phone] Allergies No known active allergies Medications amphetamine-dext roamphetamine 5 MG tablet Take 15 mg by mouth as needed. 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 Gender Identity Not on file Sexual Orientation Not on file Last Filed Vital Signs Vital Sign Reading Time Taken Comments Blood Pressure 113/78 01/12/2022 10:30 AM CDT Pulse 64 01/12/2022 10:30 AM CDT Temperature 37.3 C (99.1 F) 01/12/2022 9:24 AM CDT Respiratory Rate 16 01/12/2022 10:30 AM CDT Oxygen Saturation 100% 01/12/2022 10:30 AM CDT Inhaled Oxygen Concentration - - Weight 58.1 kg (128 lb) 01/12/2022 9:24 AM CDT Height 160 cm (5' 3) 01/12/2022 9:24 AM CDT Body Mass Index 22.67 01/12/2022 9:24 AM CDT Plan of Treatment Health Maintenance Due Date Last Done Comments Cervical Cancer Screening Pap Smear (Age 21 to 29) Every 3 Years 1998 Cervical Cancer Screening 1998 Annual Physical 2001 HPV Vaccines (1 - 3-dose series) 2013 Hepatitis C 2016 DTaP, Tdap and Td Vaccines (6 - Tdap) 02/19/2021 02/18/2021, 04/11/2002, 04/19/1999, Additional history exists COVID-19 Vaccine (3 - 2023- season) 2024 01/10/2021, 12/09/2020 Hepatitis B Vaccines Completed 04/19/1999, 1998, 1998 Pneumococcal Vaccine: Pediatrics (0 to 5 Years) and At-Risk Patients (6 to 49 Years) Aged Out 02/04/2001 No longer eligible based on patient's age to complete this topic Meningococcal B Vaccine Aged Out No l onger eligible based on patient's age to complete this topic Meningococcal Vaccine Aged Out No charity melodie eligible based on patient's age to complete this topic RSV Immunizations Under 20 Months Aged Out No longer eligible based on patient's age to complete [place] [address] [place] [address] PONCE Care Teams Hand Edge Bander Relationship Specialty Start Date End Date Kristopher Rodriguez MD [address] [place] [address] PCP - General FAMILY PRACTICE 01/12/22
--- OUTSIDE RECORDS SUMMARY | 2025-02-25 16:44 | XMS_ITS | Encounter Summary ---
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
== END 2025-02-25 16:54 | disposition home or self-care (01) ==
LOC: CHSED 16:42
PROVIDERS: Emergency Provider Internal Medicine Critical Care Medicine; PCP Family Medicine
DX: K02.9 Dental caries, unspecified (principal)
CPT/HCPCS: 99283